=== PATIENT | male | born 1955 | race Caucasian/White ===

== ENCOUNTER → 2020-06-25 07:25 | Outpatient (CLI) | payer OTHER, SELFPAY ==
--- NOTE | ~2020-06-25 | XR_ITS ---
EXAMINATION: XR hip RT 2V w AP pelvis EXAM DATE: 06/25/2020 08:03 INDICATION: Right hip pain. TECHNIQUE: Right hip frontal, 'frog leg' projections for interpretation. Frontal projection pelvis. There is no prior study for comparison. FINDINGS: No evidence of hip avascular necrosis. There is mild to moderate symmetric bilateral hip pr imary osteoarthritis. There are no acute fractures or dislocations identified. There is no subcutane ous gas. Calcifications in the pelvis are believed to be phleboliths. There are no radiopaque forei gn bodies. IMPRESSION: Mild to moderate symmetric bilateral hip osteoarthritis. Reviewed, dictated and finalized at location B. SERVICE CONSULTANT
--- NOTE | ~2020-06-25 | XR_ITS ---
EXAMINATION: XR lumbar spine min 4V EXAM DATE: 06/25/2020 08:03 INDICATION: Low back pain. TECHNIQUE: Lumber spine frontal, lateral, lateral L5-S1 projections for interpretation. Additional fr ontal projection lumbosacral junction. There is no prior study for comparison. FINDINGS: Mild diffuse loss of the L4 and L5 vertebral body heights more than L3. There is 2-3 mm an terolisthesis L3 on L4. The vertebral bodies are otherwise aligned. Mild to moderate loss of the L4-5 disc height, moderate at L5-S1. Mild to moderate diffuse lumbar facet arthropathy. There is moderate aortic arterial sclerosis without evidence of aneurysm. Paraspinal soft tissues otherwise unremarkab le. No spondylolysis. Lumbar straightening, could indicate muscular spasm or be positional. There is mild to moderate bilateral sacroiliac primary osteoarthritis. IMPRESSION: 1. Mild to moderate lumbar spondylosis and sacroiliac osteoarthritis. 2. Lumbar straightening. Positional versus spasm. Reviewed, dictated and finalized at location B. 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
== END ==
PROVIDERS: PCP Internal Medicine; Visit Provider Internal Medicine
DX: M47.896 Other spondylosis, lumbar region (principal); M16.0 Bilateral primary osteoarthritis of hip
CPT/HCPCS: 72110; 73502